=== PATIENT | male | born 1985 | race Two or more races ===

== ENCOUNTER 2017-07-27 11:53 | Emergency (ER) | payer MEDICAID, OTHER ==
[~2017-07-27] VITALS: Ht 177.8 cm; Wt 81.6 kg
[2017-07-27 12:34] VITALS: BP 118/66
[2017-07-27 12:48] LABS: BASOPHILS % (AUTO) 0.5 % (0.0-2.0); EOSINOPHILS % (AUTO) 0.6 % (0.0-3.0); LYMPHOCYTES % (AUTO) 15.3 % (20.0-45.0); MEAN CORPUSCULAR HEMOGLOBIN 31.9 PG (27.0-31.0); MEAN CORPUSCULAR HGB CONC 35.5 G/DL (32.0-36.0); MEAN CORPUSCULAR VOLUME 90 FL (80-99); MEAN PLATELET VOLUME 5.7 FL (6.5-10.1); MONOCYTES % (AUTO) 10.6 % (1.0-10.0); NEUTROPHILS % (AUTO) 73.1 % (45.0-75.0); PLATELET COUNT 328 K/UL (150-450); RED BLOOD COUNT 4.34 M/UL (4.70-6.10); RED CELL DISTRIBUTION WIDTH 10.8 % (11.6-14.8); WHITE BLOOD COUNT 10.6 K/UL (4.8-10.8)
[2017-07-27 12:49] LABS: APPEARANCE,URINE SLIGHTLY CLOUDY; KETONES,URINE 4+ (NEGATIVE); LEUKOCYTE ESTERASE ,URINE 2+ (NEGATIVE); NITRITE,URINE NEGATIVE (NEGATIVE); PH,URINE 6.5 (4.5-8.0); PROTEIN,URINE 3+ (NEGATIVE); UROBILINOGEN,URINE 8 MG/DL (0.0-1.0)
[2017-07-27 12:58] LABS: BACTERIA,URINE FEW /HPF; GRANULAR CASTS,URINE 0-2 /LPF; RBC,URINE TNTC /HPF (0 - 0); SQUAMOUS EPITHELIAL CELL,UR FEW /LPF (NONE/OCC)
[2017-07-27 12:59] LABS: ICTOTEST NEGATIVE; MUCUS,URINE MODERATE /LPF (NONE/OCC)
[2017-07-27 13:46] LABS: ALANINE AMINOTRANSFERASE 6 U/L (3-41); ALBUMIN/GLOBULIN RATIO 0.8 (1.0-2.7); ANION GAP 14 (5-15); ASPARTATE AMINO TRANSFERASE 7 U/L (5-40); CALCIUM 8.5 mg/dL (8.6-10.2); CARBON DIOXIDE 22 mEQ/L (20-30); CHLORIDE 98 mEQ/L (98-107); CREATININE 0.7 mg/dL (0.7-1.2); GLOMERULAR FILTRATION RATE > 60 mL/min (>60); HEMOLYSIS 0; LIPASE 17 U/L (< 60); POTASSIUM 3.7 mEQ/L (3.4-4.9); SODIUM 134 mEQ/L (135-145); TOTAL PROTEIN 7.2 g/dL (6.6-8.7); TROPONIN I < 0.30 ng/mL (<=0.30)
[2017-07-27] MEDS ORDERED: Morphine Sulfate 4mg/ml Inj IVP ONE (14:00)
[2017-07-27] MEDS ORDERED: Metoclopramide 10mg/2ml Inj IVP ONE (14:00)
--- NOTE | 2017-07-27 15:16 | Diagnostic Imaging Report ---
Indication: Abdominal pain Technique: Continuous helical transaxial imaging of the abdomen and pelvis was obtained from the lung bases to the pubic symphysis during intravenous contrast administration. Coronal 2-D reformats were also obtained. Study obtained in a Siemens sensation [address] Total Dose length Product (DLP): [address] Dose Index Volume (CTDIvol): 18.4, 0.15 mGy Comparison: None Findings: The lung bases are clear. The kidneys are unremarkable. Appendix is seen and appears normal. The urinary bladder is unremarkable. There is no hydronephrosis or definite renal stones identified. The pancreas, spleen and adrenal glands show no differential abnormality. No free fluid or free air seen. No evidence of bowel obstruction. Impression: No acute findings. Normal appendix. The CT scanner at [facility] is accredited by the [employer] and the scans are performed using dose optimization techniques as appropriate to a performed exam including Automatic Exposure control.
[2017-07-27] MEDS ORDERED: CORTISPORIN EAR10 ML BOTH EARS (15:31)
[2017-07-27] MEDS ORDERED: ZOFRAN4 M3 ORAL (15:31)
[2017-07-27] MEDS ORDERED: AMOXICILLIN500 MG ORAL (15:31)
[2017-07-27] MEDS ORDERED: ACETAMINOPHEN-1 EAC1 ORAL (15:31)
[2017-07-27 15:46] VITALS: BP 123/61
[2017-07-27 15:48] VITALS: BP 123/61
--- NOTE | 2017-07-28 16:11 | Cardiology Report ---
APPROVED REPORT EKG Measurement Heart [id number] Normal sinus rhythm Possible Inferior infarct, age undetermined Abnormal ECG
--- NOTE | 2017-07-29 13:45 | Emergency Room Report ---
History of Present Illness General Chief Complaint: General Complaint Source: EMS Present Illness HPI The patient is a 31 yo M with multiple complaints including nausea, vomiting since yesterday, ear pain, and fatigue. He denies any recent travel or sick contacts. He states he had 6 episodes of vomiting yesterday. He states he has not been able to tolerate fluids of foods due to nausea. He also states that he has had R ear pain for the past week for which he saw his PMD and was prescribed oral antibiotics which did not help. He denies other symptoms including F, chills, SOB, CP rash, GARCIA, abd pain, dizziness, diarrhea, constipation Allergies: Coded Allergies: No Known Allergies (Unverified , 07/27/17) Patient History Past Medical History: see triage record Pertinent Family History: none Reviewed Nursing Documentation: PMH: Agreed, PSxH: Agreed Nursing Documentation-PMH Past Medical History: No History, Except For History Of Psychiatric Problem: Yes Review of Systems All Other Systems: negative except mentioned in HPI Physical Exam Vital Signs Date Time Temp Pulse Resp B/P (MAP) Pulse Ox O2 Delivery O2 Flow Rate FiO2 07/27/17 11:46 99.3 102 20 132/67 99 Room Air Sp02 EP Interpretation: reviewed, normal General Appearance: no apparent distress, alert, GCS 15, non-toxic Eyes: bilateral eye normal inspection, bilateral eye PERRL ENT: normal pharynx, normal voice, other - Bilat TTP over tragus with EAC erythema. Neck: full range of motion, supple/symm/no masses Respiratory: chest non-tender, lungs clear, normal breath sounds, no wheezing, speaking full sentences Gastrointestinal: normal bowel sounds, non tender, soft, non-distended, no guarding, no rebound Genitourinary: normal inspection, no CVA tenderness Musculoskeletal: back normal, gait/station normal, normal range of motion, non- tender Neurologic: alert, oriented x3, responsive, motor strength/tone normal, sensory intact, speech normal Psychiatric: judgement/insight normal, memory normal, mood/affect normal, no suicidal/homicidal ideation Skin: normal color, no rash, warm/dry, well hydrated Lymphatic: adenopathy - post auricular Medical Decision Making PA Attestation Dr. Casillas is my supervising physician. Patient management was discussed with my supervising physician Diagnostic Impression: Primary Impression: Hematuria Qualified Codes: R31.9 - Hematuria, unspecified Additional Impressions: Pharyngitis, acute Qualified Codes: J02.9 - Acute pharyngitis, unspecified Otitis externa, acute Qualified Codes: H60.503 - Unspecified acute noninfective otitis externa, bilateral ER Course The patient is a 31 yo M presenting for multiple complaints DDx considered but not limited to: gastroenteritis, pharyngitis, AOM, otitis externa, dehydration, among others PE: Afebrile. NAD HEENT reveals bilat otits externa with post auricular lymphad. Bilat tonsillar edema, erythema, and exudate. Lungs CTA bilat RRR Skin warm and dry. No rash. Normal turgor CBC: No leukocytosis CMP: Unremarkable. BUN/Cr WNL UA: Significant RBCs and occult blood with few bacteria and WBCS CT abd/pelvis unremarkable The patient was told the results for UA and states he knows he has bleeding in his bladder and had cystoscopy recently which showed a bleeding vessel. He is set for FU urology appointment. He was given pain medication and zofran and states he is feeling better. He will be treated for both AOE and pharyngitis and needs to FU with PMD and urology as soon as possible. He understands. ER precautions given Labs Test 07/27/17 12:30 07/27/17 13:15 White Blood Count 10.6 K/UL (4.8-10.8) Red Blood Count 4.34 M/UL (4.70-6.10) Hemoglobin 13.9 G/DL (14.2-18.0) Hematocrit 39.0 % (42.0-52.0) Mean Corpuscular Volume 90 FL (80-99) Mean Corpuscular Hemoglobin 31.9 PG (27.0-31.0) Mean Corpuscular Hemoglobin Concent 35.5 G/DL (32.0-36.0) Red Cell Distribution Width 10.8 % (11.6-14.8) Platelet Count 328 K/UL (150-450) Mean Platelet Volume 5.7 FL (6.5-10.1) Neutrophils (%) (Auto) 73.1 % (45.0-75.0) Lymphocytes (%) (Auto) 15.3 % (20.0-45.0) Monocytes (%) (Auto) 10.6 % (1.0-10.0) Eosinophils (%) (Auto) 0.6 % (0.0-3.0) Basophils (%) (Auto) 0.5 % (0.0-2.0) Urine Color Yellow Urine Appearance Slightly cloudy Urine pH 6.5 (4.5-8.0) Urine Specific [place] 1.010 (1.005-1.035) Urine Protein 3+ (NEGATIVE) Urine Glucose (UA) Negative (NEGATIVE) Urine Ketones 4+ (NEGATIVE) Urine Occult Blood 5+ (NEGATIVE) Urine Nitrite Negative (NEGATIVE) Urine Bilirubin 2+ (NEGATIVE) Urine Ictotest Negative Urine Urobilinogen 8 MG/DL (0.0-1.0) Urine Leukocyte Esterase 2+ (NEGATIVE) Urine RBC Tntc /HPF (0 - 0) Urine WBC 5-10 /HPF (0 - 0) Urine Squamous Epithelial Cells Few /LPF (NONE/OCC) Urine Bacteria Few /HPF (NONE) Urine Granular Casts 0-2 /LPF (NONE) Urine Mucus Moderate /LPF (NONE/OCC) Sodium Level 134 mEQ/L (135-145) Potassium Level 3.7 mEQ/L (3.4-4.9) Chloride Level 98 mEQ/L (98-107) Carbon Dioxide Level 22 mEQ/L (20-30) Anion Gap 14 (5-15) Blood Urea Nitrogen 14 mg/dL (7-23) Creatinine 0.7 mg/dL (0.7-1.2) Estimat Glomerular Filtration Rate > 60 mL/min (>60) Glucose Level 82 mg/dL (74-106) Calcium Level 8.5 mg/dL (8.6-10.2) Total Bilirubin 0.4 mg/dL (0.0-1.2) Aspartate Amino Transf (AST/SGOT) 7 U/L (5-40) Alanine Aminotransferase (ALT/SGPT) 6 U/L (3-41) Alkaline Phosphatase 92 U/L (40-129) Troponin I < 0.30 ng/mL (<=0.30) Total Protein 7.2 g/dL (6.6-8.7) Albumin 3.3 g/dL (3.5-5.2) Globulin 3.9 g/dL Albumin/Globulin Ratio 0.8 (1.0-2.7) Lipase 17 U/L (< 60) Lab Results Impression CBC: No leukocytosis CMP: Unremarkable. BUN/Cr WNL UA: Significant RBCs and occult blood with few bateria and WBCS EKG Diagnostic Results EP Interpretation: NSR. no acute findings Rate: normal Rhythm: NSR ST Segments: no acute changes ASA given to the pt in ED: No PA Scribe Text The EKG was reviewed with my supervising physician with no acute findings seen. CT/MRI/US Diagnostic Results CT/MRI/US Diagnostic Results : Imaging Test Ordered: CT abd pelvis Impression Unremarkable Last Vital Signs Date Time Temp Pulse Resp B/P (MAP) Pulse Ox O2 Delivery O2 Flow Rate FiO2 07/27/17 15:48 99.7 93 11 123/61 100 Room Air Status: improved Disposition: HOME, SELF-CARE Condition: Improved Scripts Acetaminophen With Codeine (T#3) (TYLENOL #3 TAB*) Y Tab 1 TAB ORAL Q6HR Y for For Pain, #10 TAB Prov: SANIYA HEMPHILL P.A. 07/27/17 Ondansetron* (ZOFRAN*) 4 Mg Tablet 4 MG ORAL Q6H Y for Nausea & Vomiting, #30 TAB Prov: TERAKOSUAANSANIYA P.A. 07/27/17 Amoxicillin* (AMOXIL*) 500 Mg Capsule 500 MG ORAL Q12HR, #20 CAP Prov: TERZIANSANIYA P.A. 07/27/17 Neomycin/Polymyxin B Sulf/Hc* (CORTISPORIN EAR SOLUTION*) 10 Ml Solution 4 DROP BOTH EARS QID, #10 ML 0 Refills Prov: HERACLIOANSANIYA P.A. 07/27/17 Patient Instructions: Otitis Externa, Pharyngitis, Hematuria, Adult Additional Instructions: I discussed my findings with the patient. All questions and concerns have been answered. Treatment and medication compliance have been addressed. I advised the patient that they need to follow up with PMD in 3-5 days. Return to ED if symptoms worsen, new symptoms arise, or if needed for any reason. Patient verbalized understanding of discharge instructions. Please also follo up with urologist for blood in urine as soon as possible SANIYA HEMPHILL Jul 29, 2017 13:45
== END 2017-07-27 15:49 | disposition home or self-care (01) ==
LOC: EDBD 11:53 → EMR 12:58
DX: R31.9 Hematuria, unspecified (principal); J02.9 Acute pharyngitis, unspecified; H60.503 Unspecified acute noninfective otitis externa, bilateral; R10.9 Unspecified abdominal pain; R11.2 Nausea with vomiting, unspecified
CPT/HCPCS: 36415; 74177; 80053; 81003; 83690; 84484; 85025; 93005; 96361; 96374; 96375; 99284; J2270; J2405; J2765; Q9967